=== PATIENT | male | born 1950 | race Caucasian/White ===

== ENCOUNTER 2023-05-19 17:08 | Outpatient (CLI) | payer MEDICARE, SELFPAY ==
--- NOTE | ~2023-05-19 | CT_ITS ---
EXAMINATION: CT abdomen pelvis w con DATE: 05/19/2023 18:21 INDICATION: acute LLQ pain, acute diverticulitis TECHNIQUE: Computed tomography (CT) of the abdomen and pelvis was performed with 100 mL Omnipaque-350 intravenous contrast. Automated exposure control and iterative reconstruction technique were employe d. The dose-length product was 421.22 mGy-cm. COMPARISON: None. FINDINGS: Lower thorax: Mild bilateral basilar dependent scar/atelectasis Liver: Subcentimeter hypodensity, likely cyst or hemangioma. Biliary/Gallbladder: Gallbladder is normal. No bile duct dilation. Pancreas: No mass or duct dilation. Spleen: Normal. Adrenals:No mass. Kidneys: Nonobstructing right upper pole calcification. Simple right upper pole cyst. Multiple right hypodensities, too small to characterize but also likely represent cysts GI tract: Mild distal esophageal and gastric wall edema. No small or large bowel dilation. Normal brad endix. Moderate diverticulosis. Short segment of distal descending colonic wall thickening with surro unding inflammatory change. No abscess. Mesentery/Peritoneum: No ascites, mass, or free air. Retroperitoneum: No mass. Atherosclerotic abdominal aortic and/or arterial calcifications. Pelvis: Moderate bladder wall thickening. Marked prostatomegaly. Soft Tissues: Soft tissues and body wall unremarkable. Bones: No acute osseous finding. IMPRESSION: Mild esophagitis/gastritis. Acute uncomplicated diverticulitis involving the distal descending colon in the left lower quadrant. Cystitis versus bladder wall thickening from outlet compromise. Reviewed, dictated and finalized at location K.
[2023-05-19 17:37] LABS: Basophils Absolute Auto 0.04 K/mm3 (0.00-0.10); Basophils Percent Auto 0.2 % (0.0-1.0); Eosinophils Absolute Auto 0.02 K/mm3 (0.02-0.50); Eosinophils Percent Auto 0.1 % (1.0-6.0); Hematocrit 45.9 % (37.0-46.0); Hemoglobin 15.6 g/dL (12.4-15.3); Immature Granulocyte Absolute 0.06 K/mm3 (0.00-0.00); Immature Granulocyte Percent A 0.4 % (0.0-0.0); Lymphocytes Absolute Auto 2.06 K/mm3 (1.10-4.50); Lymphocytes Percent Auto 12.4 % (18.0-42.0); Mean Corpuscular Volume 91.3 fL (78.0-102.0); Mean Platelet Volume 10.7 fl (8.7-11.0); Monocytes Absolute Auto 1.11 K/mm3 (0.10-0.90); Monocytes Percent Auto 6.7 % (2.0-11.0); Neutrophils Absolute Auto 13.3 K/mm3 (1.7-7.2); Neutrophils Percent Auto 80.2 % (50.0-70.0); Platelet Count Result 221 K/mm3 (150-420); Red Blood Count 5.03 M/mm3 (4.70-6.10); Red Cell Distribution Width 12.5 % (11.6-14.4); White Blood Count 16.6 K/mm3 (4.8-10.8)
[2023-05-19 17:45] LABS: Estimated Glomerular Filt Rate 58
[2023-05-19 18:02] LABS: Alanine Aminotransferase 15 U/L (16-63); Albumin Level 3.6 g/dL (3.4-5.0); Alkaline Phosphatase 109 U/L (46-116); Anion Gap 8 mmol/L (8-16); Aspartate Amino Transferase 16 U/L (15-37); Bilirubin,Total 1.8 mg/dL (0.00-1.00); Blood Urea Nitrogen 23 mg/dL (7-18); Calcium 8.8 mg/dL (8.5-10.1); Carbon Dioxide 29 mmol/L (21-32); Chloride 102 mmol/L (98-108); Estimated Glomerular Filt Rate 59; Glucose 97 mg/dL (70-99); Osmolality Calculated 291 mOsm/kg (285-295); Potassium 3.9 mmol/L (3.5-5.1); Sodium 139 mmol/L (136-145); Total Protein 6.7 g/dL (6.4-8.2)
== END 2023-05-19 17:09 | disposition home or self-care (01) ==
LOC: CHSLAB 17:20
PROVIDERS: PCP Internal Medicine; Visit Provider Internal Medicine
DX: R10.32 Left lower quadrant pain (principal); K20.90 Esophagitis, unspecified without bleeding; K29.70 Gastritis, unspecified, without bleeding; K57.92 Diverticulitis of intestine, part unspecified, without perforation or abscess without bleeding; R93.41 Abnormal radiologic findings on diagnostic imaging of renal pelvis, ureter, or bladder
CPT/HCPCS: 36415; 74177; 80053; 85025; Q9967

== ENCOUNTER 2024-12-28 07:49 | Outpatient (CLI) | payer MEDICARE, SELFPAY ==
--- OUTSIDE RECORDS SUMMARY | 2024-12-28 08:01 | XMS_ITS | Clinical Summary ---
Author Organization [facility] Address [address] [place] [address] Care Team Providers Care Seed Analyst Name Role Phone Jamaica Fritz MD Primary Care Provider [phone] Allergies No known active allergies Medications finasteride (PROSCAR) 5 MG tablet Take 1 tablet (5 mg total) by mouth daily. 04/25/2022 Active mirtazapine (REMERON) 15 MG tablet Take 1 tablet (15 mg total) by mouth nightly at bedtime. 03/14/2022 Active tamsulosin (FLOMAX) 0.4 MG Cap Take 2 capsules (0.8 mg total) by mouth daily. 10/10/2022 Active verapamil (CALAN SR) 240 MG ER tablet Take 1 tablet (240 mg total) by mouth daily. 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 Gender Identity Not on file Sexual Orientation Not on file Last Filed Vital Signs Vital Sign Reading Time Taken Comments Blood Pressure 147/81 12/29/2022 8:56 AM CDT Pulse 71 12/29/2022 8:56 AM CDT Temperature 36.5 C (97.7 F) 12/29/2022 8:56 AM CDT Respiratory Rate 16 12/29/2022 8:56 AM CDT Oxygen Saturation 100% 12/29/2022 8:56 AM CDT Inhaled Oxygen Concentration - - Weight 79.4 kg (175 lb) 12/22/2022 1:53 PM CDT Height 177.8 cm (5' 10 ) 12/22/2022 1:53 PM CDT Body Mass Index 25.11 12/22/2022 1:53 PM CDT Plan of Treatment Health Maintenance Due Date Last Done Comments Colorectal Cancer Screening Colonoscopy (10 Years) 1950 Hepatitis C 1968 Zoster Vaccines (2 of 3) 12/26/2012 10/31/2012 Annual Medicare Wellness Visit 12/18/2015 COVID-19 Vaccine (4 - 2023-2 5 season) 2024 10/29/2021, 01/17/2021, 12/20/2020 Influenza Adult (#1) 2024 10/10/2020 RSV Immunization or 60+ Years (1 - 1-dose 75+ series) 2025 DTaP, Tdap and Td Vaccines ( 3 - Td or Tdap) 03/27/2032 03/27/2022, 04/26/2012 Pneumococcal Vaccine: 65+ Years Completed 01/01/2017, 12/24/2015 Meningococcal B Vaccine Aged Out No l onger eligible based on patient's age to complete this topic Meningococcal Vaccine Aged Out No manjinder diego eligible based on patient's age to complete this topic RSV Immunizations Under 20 Months Aged Out No longer eligible b ased on patient's age to complete this topic Insurance [facility] [address] Care Teams Seed Analyst Relationship Specialty Start Date End Date Fritz, Rajneesh S, MD [address] [place] [address] PCP - General INTERNAL MEDICINE 12/08/22
[2024-12-28 08:52] LABS: Prostate Specific Antigen 6.3 ng/mL (< OR = 4.0)
== END 2024-12-28 07:50 | disposition home or self-care (01) ==
LOC: CHSLAB 07:54
PROVIDERS: PCP Internal Medicine; Visit Provider Urology
DX: R97.20 Elevated prostate specific antigen [PSA] (principal)
CPT/HCPCS: 36415; 84153

== ENCOUNTER 2025-02-01 10:24 | Outpatient (CLI) | payer MEDICARE, SELFPAY ==
[2025-02-02 05:05] LABS: Prostate Specific Antigen 4.8 ng/mL (< OR = 4.0)
== END 2025-02-01 10:25 | disposition home or self-care (01) ==
LOC: CHSLAB 10:25
PROVIDERS: PCP Internal Medicine; Visit Provider Internal Medicine
DX: R97.20 Elevated prostate specific antigen [PSA] (principal)
CPT/HCPCS: 36415; 84153